=== PATIENT | female | born 1960 | race Caucasian/White ===

== ENCOUNTER 2023-04-07 20:56 | Emergency (ER) | payer BC ==
[2023-04-07] MEDS ORDERED: methylPREDNISolone Sod Succ/PF 125 MG/2 ML VIAL ONE (22:00)
[2023-04-07] MEDS ORDERED: Famotidine/PF 20 mg/2ml Vial ONE (22:00)
== END 2023-04-07 23:34 | disposition home or self-care (01) ==
LOC: CSHERS 20:56
DX: T78.40XA Allergy, unspecified, initial encounter (principal); E03.9 Hypothyroidism, unspecified
CPT/HCPCS: J2930; S0028

== ENCOUNTER 2023-04-10 21:53 | Emergency (ER) | payer BC | END 2023-04-11 02:42 | disposition home or self-care (01) | LOC: CSHERS 21:53 | DX: M79.632 Pain in left forearm (principal); R20.2 Paresthesia of skin; E78.5 Hyperlipidemia, unspecified; Z79.899 Other long term (current) drug therapy ==